=== PATIENT | female | born 1990 | race Caucasian/White ===

== ENCOUNTER 2017-04-23 20:04 | Inpatient (IN) | payer OTHER ==
[~2017-04-23] VITALS: Ht 162.6 cm; Wt 69.9 kg
[~2017-04-23 20:04] MED LIST: BUPIVACAINE /PF 0.25% 30 ML VIAL INJ ONE; CYCL-10 PO; DOCU-144 PO; HYDR-4100 PO; PREN-89 PO
[2017-04-23] MEDS ORDERED: LR 1,000 ML IV ONE ×2 (21:17→23:58)
[2017-04-23] MEDS ORDERED: OXYTOCIN/NORMAL SALINE 1,000 ML IV SCH (21:17)
[2017-04-23] MEDS ORDERED: TERBUTALINE SULFATE 1 MG/ML VIAL SUBCUT ONE (21:30)
[2017-04-23] MEDS ORDERED: NALBUPHINE HCL 10 MG/ML AMP IVP PRN (21:30)
[2017-04-23] MEDS ORDERED: CLINDAMYCIN 600 mg/50mL D5W 100 ML IV ONE (21:34)
[2017-04-23 21:51] LABS: MEAN CORPUSCULAR HEMOGLOBIN 25 pg (27-31); MEAN CORPUSCULAR HGB CONC 32 % (32-36); MEAN CORPUSCULAR VOLUME 79 fL (79.0-98.0); PLATELET COUNT (AUTO) 166 K/uL (130-430); RED BLOOD CELL COUNT(AUTO) 3.57 MIL/uL (4.2-6.2); RED CELL DISTRIBUTION WIDTH 15.6 % (9.0-15.0); WHITE BLOOD COUNT (AUTO) 19.3 K/uL (4.8-10.8)
[2017-04-23] MEDS ORDERED: CLINDAMYCIN 600 mg/50mL D5W 50 ML IV ONE (22:00)
[2017-04-23] MEDS: CLINDAMYCIN 600 mg/50mL D5W 50 ML IV SCH (22:10)
[2017-04-23] MEDS: LR 1,000 ML IV SCH ×2 (22:10→23:00)
[2017-04-23 22:20] LABS: ATYPICAL LYMPHOCYTES % 0 % (0-0); BAND % (MANUAL) 2 % (0-6); BASOPHILS % (MANUAL) 0 % (0-2); EOSINOPHILS % (MANUAL) 0 % (0-7); LYMPHOCYTES % (MANUAL) 4 % (20-46); MONOCYTES % (MANUAL) 4 % (0-11)
[2017-04-23] MEDS ORDERED: LIDOCAINE PF 1%, 20 MG/2 ML AMP ONE (22:56)
[2017-04-23] MEDS ORDERED: FENT2mCg/mL-ROPIVA0.2%/NS EPID 150 ML EP ONE (22:56)
[2017-04-23] MEDS ORDERED: FENT2mCg/mL-ROPIVA0.2%/NS EPID 150 ML EP SCH (22:56)
[2017-04-23] MEDS ORDERED: fentaNYL CITRATE/PF 100 MCG/2 ML AMP EP ONE (22:57)
[2017-04-23] MEDS ORDERED: fentaNYL CITRATE/PF 100 MCG/2 ML AMP ONE (22:57)
[2017-04-24] MEDS ORDERED: NALBUPHINE HCL 10 MG/ML AMP IVP PRN
[2017-04-24] MEDS ORDERED: fentaNYL CITRATE/PF 100 MCG/2 ML AMP IVP PRN
[2017-04-24] MEDS ORDERED: ONDANSETRON HCL 4 MG/2 ML VIAL IVP PRN ×2
[2017-04-24] MEDS ORDERED: NALOXONE HCL 0.4 MG/ML AMP (NARCAN) IVP PRN
[2017-04-24] MEDS ORDERED: ePHEDrine sulfate 50 MG/ML VIAL IVP PRN
[2017-04-24] MEDS ORDERED: KETOROLAC TROMETHAMINE 30 MG VIAL IM PRN
[2017-04-24] MEDS ORDERED: MAG-AL HYDROX/SIMETH 30 ML UDC PO PRN (00:45)
[2017-04-24] MEDS: LR 1,000 ML IV SCH ×3 (00:52→10:20)
[2017-04-24] MEDS ORDERED: MAG-AL HYDROX/SIMETH 30 ML UDC ONE (00:52)
[2017-04-24] MEDS: CLINDAMYCIN 600 mg/50mL D5W 50 ML IV SCH ×2 (04:15→10:20)
[2017-04-24] MEDS: DIPHENHYDRAMINE INJ 50 MG/ML VIAL IVP PRN ×3 (06:34→22:44)
[2017-04-24] MEDS ORDERED: DIPHENHYDRAMINE INJ 50 MG/ML VIAL IM ONE (07:30)
[2017-04-24] MEDS ORDERED: DIPHENHYDRAMINE INJ 50 MG/ML VIAL ONE (07:41)
[2017-04-24] MEDS ORDERED: OXYTOCIN 30 UNIT in LR 1,000 ML IV SCH (09:00)
[2017-04-24] MEDS ORDERED: FENT2mCg/mL-ROPIVA0.2%/NS EPID 150 ML EP ONE (10:28)
[2017-04-24 10:43] LABS: BARBITURATE, URINE NEGATIVE (NEG <=200); BENZODIAZEPINE, URINE NEGATIVE (NEG <=150); CANNABINOID, URINE NEGATIVE (NEG <=50); COCAINE, URINE NEGATIVE (NEG <=150); METHAMPHETAMINES SCREEN,URINE NEGATIVE (NEG <=500); OPIATE, URINE NEGATIVE (NEG <=100); PHENCYCLIDINE SCREEN,URINE NEGATIVE (NEG <=25); UR TRICYCLIC ANTIDEPRESSANTS NEGATIVE (NEG <=300); URINE AMPHETAMINE NEGATIVE (NEG <=500); URINE METHADONE NEGATIVE (NEG <=200); URINE OXYCODONE SCREEN NEGATIVE (NEG <=100); URINE PROPOXYPHENE SCREEN NEGATIVE (NEG <=300)
[2017-04-24] MEDS ORDERED: METHYLERGONOVINE MALEATE 0.2 MG/ML AMP ONE (12:39)
[2017-04-24 12:50] VITALS: BP_SYST 103
[2017-04-24] MEDS ORDERED: METHYLERGONOVINE MALEATE 0.2 MG/ML AMP IM ONE (13:20)
[2017-04-24] MEDS ORDERED: OXYTOCIN/NORMAL SALINE 1,000 ML IV ONE (13:45)
[2017-04-24] MEDS ORDERED: HYDROCORTISONE 0.5%, 28.35 GM TOPICAL CREAM TP PRN (13:45)
[2017-04-24] MEDS ORDERED: DERMOPLAST SPRAY TP PRN (13:45)
[2017-04-24] MEDS ORDERED: LANOLIN 7 GM OINT. TP PRN (13:45)
[2017-04-24] MEDS ORDERED: GLYCERIN/WITCH HAZEL (TUCKS PADS) TP PRN (13:45)
[2017-04-24] MEDS ORDERED: IBUPROFEN 800 MG TABLET PO PRN (13:45)
[2017-04-24] MEDS ORDERED: ANUSOL 1 EA SUPP.RECT (PREPARATION H) RC PRN (13:45)
[2017-04-24] MEDS ORDERED: MISOPROSTOL 100 MCG TABLET (CYTOTEC) ONE (14:37)
[2017-04-24 14:44] LABS: MEAN CORPUSCULAR HEMOGLOBIN 26 pg (27-31); MEAN CORPUSCULAR HGB CONC 33 % (32-36); MEAN CORPUSCULAR VOLUME 79 fL (79.0-98.0); PLATELET COUNT (AUTO) 144 K/uL (130-430); RED BLOOD CELL COUNT(AUTO) 2.54 MIL/uL (4.2-6.2); RED CELL DISTRIBUTION WIDTH 15.8 % (9.0-15.0); WHITE BLOOD COUNT (AUTO) 21.3 K/uL (4.8-10.8)
[2017-04-24] MEDS ORDERED: HYDROmorphone 2 MG/ML VIAL IVP ONE ×2 (14:45→16:15)
[2017-04-24 14:50] LABS: HEMOGLOBIN 6.5 g/dL (12.0-16.0)
[2017-04-24] MEDS ORDERED: HYDROmorphone 2 MG/ML VIAL ONE (14:51)
[2017-04-24 15:11] LABS: BAND % (MANUAL) 1 % (0-6)
[2017-04-24] MEDS: OXYCODONE/ACETAMINOPHEN 5-325 TABLET PO PRN ×2 (15:11→22:43)
[2017-04-24 15:12] LABS: ATYPICAL LYMPHOCYTES % 0 % (0-0); BASOPHILS % (MANUAL) 0 % (0-2); EOSINOPHILS % (MANUAL) 0 % (0-7); LYMPHOCYTES % (MANUAL) 13 % (20-46); MONOCYTES % (MANUAL) 4 % (0-11)
[2017-04-24] MEDS ORDERED: KETOROLAC TROMETHAMINE 30 MG VIAL ONE (15:22)
[2017-04-24] MEDS ORDERED: DIPHENHYDRAMINE INJ 50 MG/ML VIAL IVP ONE (15:30)
[2017-04-24] MEDS ORDERED: MISOPROSTOL 100 MCG TABLET (CYTOTEC) VG ONE (20:00)
[2017-04-25] MEDS: HYDROmorphone 2 MG/ML VIAL IVP PRN ×2 (00:26→02:07)
[2017-04-25 06:18] LABS: HEMATOCRIT 25.5 % (36-48); HEMOGLOBIN 8.1 g/dL (12.0-16.0); MEAN CORPUSCULAR HEMOGLOBIN 27 pg (27-31); MEAN CORPUSCULAR HGB CONC 32 % (32-36); MEAN CORPUSCULAR VOLUME 84 fL (79.0-98.0); PLATELET COUNT (AUTO) 151 K/uL (130-430); RED BLOOD CELL COUNT(AUTO) 3.03 MIL/uL (4.2-6.2); RED CELL DISTRIBUTION WIDTH 16.9 % (9.0-15.0); WHITE BLOOD COUNT (AUTO) 21.4 K/uL (4.8-10.8)
[2017-04-25] MEDS: HYDROcodone/ACETAMIN 5-325 MG TAB (NORCO/ VICODIN) PO PRN ×2 (07:24→19:04)
[2017-04-25 08:22] LABS: ATYPICAL LYMPHOCYTES % 0 % (0-0); BAND % (MANUAL) 3 % (0-6); BASOPHILS % (MANUAL) 0 % (0-2); EOSINOPHILS % (MANUAL) 1 % (0-7); LYMPHOCYTES % (MANUAL) 11 % (20-46); MONOCYTES % (MANUAL) 7 % (0-11)
[2017-04-25] MEDS ORDERED: DIPHENHYDRAMINE HCL 50 MG CAPSULE ONE (10:12)
[2017-04-25] MEDS: OXYCODONE/ACETAMINOPHEN 5-325 TABLET PO PRN ×2 (13:56→22:33)
[2017-04-25] MEDS ORDERED: CLOBETASOL PROPIONATE 0.05%, 60 GM CREAM TP SCH (21:00)
[2017-04-25] MEDS: DIPHENHYDRAMINE HCL 50 MG CAPSULE PO PRN (23:13)
[2017-04-26] MEDS: HYDROcodone/ACETAMIN 5-325 MG TAB (NORCO/ VICODIN) PO PRN ×2 (01:57→14:07)
[2017-04-26] MEDS: DIPHENHYDRAMINE HCL 50 MG CAPSULE PO PRN ×2 (05:58→20:21)
[2017-04-26] MEDS: OXYCODONE/ACETAMINOPHEN 5-325 TABLET PO PRN ×2 (05:58→18:21)
[2017-04-26] MEDS ORDERED: MINERAL OIL 30 ML UDC PO ONE (09:00)
[2017-04-26 11:02] LABS: HEMATOCRIT 23.9 % (36-48); HEMOGLOBIN 7.6 g/dL (12.0-16.0)
[2017-04-26] MEDS ORDERED: DIPH-TET-PERTUS Vaccine 0.5 ML VIAL (ADACEL) I.M. SCH (20:15)
== END 2017-04-26 20:51 | disposition home or self-care (01) | DRG 560 ==
LOC: SPU 20:04 → OBSVTOIN 21:05 → SPU 21:52
PROVIDERS: ADMIT Specialist; ATTEND Specialist
PROC: 30233N1 Transfusion of Nonautologous Red Blood Cells into Peripheral Vein, Percutaneous Approach (ICD-10-PCS; principal; 2017-04-24)
PROC: 10E0XZZ Delivery of Products of Conception, External Approach (ICD-10-PCS; 2017-04-24)
PROC: 3E0S3CZ (ICD-10-PCS; 2017-04-24)
PROC: 00HU33Z Insertion of Infusion Device into Spinal Canal, Percutaneous Approach (ICD-10-PCS; 2017-04-24)
DX: O99.52 Diseases of the respiratory system complicating childbirth (principal); D64.9 Anemia, unspecified; J45.909 Unspecified asthma, uncomplicated; O99.89 Other specified diseases and conditions complicating pregnancy, childbirth and the puerperium; R21 Rash and other nonspecific skin eruption; O72.1 Other immediate postpartum hemorrhage; O99.03 Anemia complicating the puerperium; Z88.1 Allergy status to other antibiotic agents; Z88.8 Allergy status to other drugs, medicaments and biological substances; Z91.013 Allergy to seafood; Z91.018 Allergy to other foods; Z37.0 Single live birth; Z3A.36 36 weeks gestation of pregnancy; Z90.49 Acquired absence of other specified parts of digestive tract; O09.33 Supervision of pregnancy with insufficient antenatal care, third trimester; Z90.89 Acquired absence of other organs
CPT/HCPCS: 36415; 76700-TC; 76805-TC; 76856-TC; 80307; 81002-TC; 85007; 85018-TC; 85027; 86592; 86870; 86886; 86900; 86901; 86905; 86920; 90715; 94760; G0378; J1170; J1200; J1885; J2001; J2210; J2300; J2590; J3010; J3490; J7050; J7120; P9021; Q0163

== ENCOUNTER 2019-02-09 07:17 | Inpatient (IN) | payer OTHER ==
[~2019-02-09] VITALS: Ht 162.6 cm; Wt 70.3 kg
[~2019-02-09 07:17] MED LIST changes: -BUPIVACAINE /PF 0.25% 30 ML VIAL INJ ONE; +MINERAL OIL 30 ML UDC PO ONE
[2019-02-09] MEDS ORDERED: OXYTOCIN/0.9 % SODIUM CHLORIDE 1,000 ML IV SCH (07:24)
[2019-02-09] MEDS ORDERED: LR 1,000 ML IV SCH (07:24)
[2019-02-09] MEDS ORDERED: ROPIVACAINE 0.2% 100 ML ONE (07:45)
[2019-02-09] MEDS ORDERED: FENT2mCg/mL-ROPIVA0.2%/NS EPID 100 ML EP SCH (07:45)
[2019-02-09] MEDS ORDERED: fentaNYL CITRATE/PF 100 MCG/2 ML AMP ONE (07:45)
[2019-02-09] MEDS ORDERED: fentaNYL CITRATE/PF 100 MCG/2 ML AMP EP ONE ×2 (07:45)
[2019-02-09] MEDS ORDERED: FENT2mCg/mL-ROPIVA0.2%/NS EPID 150 ML EP SCH (07:45)
[2019-02-09 07:57] LABS: BASOPHILS # (AUTO) 0.1 K/uL (0.0-0.2); BASOPHILS % (AUTO) 0.7 % (0.0-2.0); EOSINOPHILS # (AUTO) 0.4 K/uL (0.0-0.4); EOSINOPHILS % (AUTO) 3.8 % (0.0-4.0); HEMATOCRIT 27.1 % (36-48); HEMOGLOBIN 8.6 g/dL (12.0-16.0); LYMPHOCYTES # (AUTO) 2.5 K/uL (1.0-5.5); MEAN CORPUSCULAR HEMOGLOBIN 27 pg (27-31); MEAN CORPUSCULAR HGB CONC 32 % (32-36); MEAN CORPUSCULAR VOLUME 84 fL (79.0-98.0); MONOCYTES # (AUTO) 0.7 K/uL (0.0-1.0); MONOCYTES % (AUTO) 5.9 % (1.7-9.3); NEUTROPHILS # (AUTO) 7.8 K/uL (1.8-7.7); NEUTROPHILS % (AUTO) 67.6 % (40.0-70.0); PLATELET COUNT (AUTO) 158 K/uL (130-430); RED BLOOD CELL COUNT(AUTO) 3.23 MIL/uL (4.2-6.2); RED CELL DISTRIBUTION WIDTH 15.9 % (9.0-15.0); WHITE BLOOD COUNT (AUTO) 11.5 K/uL (4.8-10.8)
[2019-02-09] MEDS ORDERED: CLINDAMYCIN 900 mg/50mL D5W 50 ML IV SCH (08:00)
[2019-02-09] MEDS ORDERED: NALBUPHINE HCL 10 MG/ML AMP IVP PRN (08:15)
[2019-02-09] MEDS ORDERED: NALOXONE HCL 0.4 MG/ML AMP (NARCAN) IVP PRN (08:15)
[2019-02-09] MEDS ORDERED: ONDANSETRON HCL 4 MG/2 ML VIAL IVP PRN (08:15)
[2019-02-09] MEDS ORDERED: METHYLERGONOVINE MALEATE 0.2 MG/ML AMP IM ONE (08:30)
[2019-02-09] MEDS ORDERED: HEMABATE 250MCG/ML VIAL AMP IM ONE (08:30)
[2019-02-09] MEDS ORDERED: LR 500 ML IV ONE (08:40)
[2019-02-09] MEDS ORDERED: ePHEDrine sulfate 50 MG/ML VIAL IVP PRN (08:45)
[2019-02-09] MEDS ORDERED: ROPIVACAINE 40 MG/20 ML AMP EP ONE (08:56)
[2019-02-09] MEDS: DIPHENHYDRAMINE INJ 50 MG/ML VIAL IVP PRN ×2 (10:11→15:48)
[2019-02-09] MEDS ORDERED: OXYTOCIN 30 UNIT in NACL 0.9% 1,000 ML IV ONE (10:15)
[2019-02-09] MEDS ORDERED: OXYTOCIN 10 UNIT/ML VIAL IV ONE (10:15)
[2019-02-09 10:21] VITALS: BP_SYST 115
[2019-02-09] MEDS ORDERED: IBUPROFEN 800 MG TABLET PO PRN (15:30)
[2019-02-09] MEDS ORDERED: MEPERIDINE HCL/PF 50 MG/ML AMP IVP PRN (15:30)
[2019-02-09] MEDS ORDERED: OXYCODONE/ACETAMINOPHEN 5-325 TABLET ONE (15:54)
[2019-02-09] MEDS ORDERED: MORPHINE SULFATE 10 MG/ML VIAL IVP ONE (16:15)
[2019-02-09] MEDS ORDERED: OXYCODONE/ACETAMINOPHEN 5-325 TABLET PO PRN (17:15)
[2019-02-10] MEDS ORDERED: MEPERIDINE HCL/PF 50 MG/ML AMP IVP PRN (00:15)
[2019-02-10] MEDS: DIPHENHYDRAMINE INJ 50 MG/ML VIAL IVP PRN ×2 (00:31→09:12)
[2019-02-10 08:30] LABS: BASOPHILS # (AUTO) 0.1 K/uL (0.0-0.2); BASOPHILS % (AUTO) 0.5 % (0.0-2.0); EOSINOPHILS # (AUTO) 0.4 K/uL (0.0-0.4); EOSINOPHILS % (AUTO) 2.6 % (0.0-4.0); LYMPHOCYTES # (AUTO) 1.9 K/uL (1.0-5.5); LYMPHOCYTES % (AUTO) 14.6 % (20.5-51.5); MEAN CORPUSCULAR HEMOGLOBIN 27 pg (27-31); MEAN CORPUSCULAR HGB CONC 32 % (32-36); MEAN CORPUSCULAR VOLUME 85 fL (79.0-98.0); MONOCYTES # (AUTO) 0.9 K/uL (0.0-1.0); MONOCYTES % (AUTO) 6.7 % (1.7-9.3); NEUTROPHILS % (AUTO) 75.6 % (40.0-70.0); PLATELET COUNT (AUTO) 140 K/uL (130-430); RED BLOOD CELL COUNT(AUTO) 2.61 MIL/uL (4.2-6.2); WHITE BLOOD COUNT (AUTO) 13.3 K/uL (4.8-10.8)
[2019-02-10 08:41] LABS: HEMATOCRIT 22.1 % (36-48); HEMOGLOBIN 6.9 g/dL (12.0-16.0)
[2019-02-10] MEDS ORDERED: ACETAMINOPHEN 325 MG TABLET PO PRN (09:00)
[2019-02-10] MEDS ORDERED: DIPHENHYDRAMINE INJ 50 MG/ML VIAL IVP PRN (09:00)
[2019-02-10] MEDS: HYDROcodone/ACETAMIN 5-325 MG TAB (NORCO/ VICODIN) PO PRN ×2 (11:00→18:02)
[2019-02-10] MEDS: DIPHENHYDRAMINE INJ 50 MG/ML VIAL IM PRN (16:35)
[2019-02-10 18:21] LABS: HEMATOCRIT 27.9 % (36-48)
[2019-02-11] MEDS: HYDROcodone/ACETAMIN 5-325 MG TAB (NORCO/ VICODIN) PO PRN (05:49)
[2019-02-11] MEDS: DIPHENHYDRAMINE INJ 50 MG/ML VIAL IVP PRN (05:49)
[2019-02-11] MEDS ORDERED: DIPH25CA83 PO (09:27)
[2019-02-11] MEDS: DIPHENHYDRAMINE INJ 50 MG/ML VIAL IM PRN (10:12)
[2019-02-11 12:38] LABS: RUBELLA AB, IgG 1.07 index (Immune >0.99)
[2019-02-12 08:12] LABS: HEPATITIS Be AG Negative (Negative)
== END 2019-02-11 10:45 | disposition home or self-care (01) | DRG 560 ==
LOC: SPU 07:17
PROVIDERS: ADMIT Specialist; ATTEND Specialist
PROC: 10E0XZZ Delivery of Products of Conception, External Approach (ICD-10-PCS; principal; 2019-02-09)
PROC: 3E0S3BZ Introduction of Anesthetic Agent into Epidural Space, Percutaneous Approach (ICD-10-PCS; 2019-02-09)
PROC: 00HU33Z Insertion of Infusion Device into Spinal Canal, Percutaneous Approach (ICD-10-PCS; 2019-02-09)
PROC: 30233N1 Transfusion of Nonautologous Red Blood Cells into Peripheral Vein, Percutaneous Approach (ICD-10-PCS; 2019-02-10)
DX: O99.824 Streptococcus B carrier state complicating childbirth (principal); D64.9 Anemia, unspecified; O99.03 Anemia complicating the puerperium; O69.1XX0 Labor and delivery complicated by cord around neck, with compression, not applicable or unspecified; O99.52 Diseases of the respiratory system complicating childbirth; J45.909 Unspecified asthma, uncomplicated; Z37.0 Single live birth; Z3A.38 38 weeks gestation of pregnancy; Z88.1 Allergy status to other antibiotic agents; Z88.0 Allergy status to penicillin; Z90.49 Acquired absence of other specified parts of digestive tract
CPT/HCPCS: 36415; 81002-TC; 85018-TC; 85025; 86592; 86762; 86870; 86886; 86900; 86901; 86905; 86920; 87350; 87536; J1200; J2175; J2210; J2590; J2795; J3010; J3490; J7030; J7120; P9021